=== PATIENT | female | born 1975 | race Two or more races ===

== ENCOUNTER 2020-07-04 18:58 | Emergency (ER) | payer SELFPAY ==
[~2020-07-04] VITALS: Ht 157.5 cm; Wt 62.0 kg
[2020-07-04] MEDS ORDERED: PREDNISONE 20MG TABLET PO ONE (20:00)
[2020-07-04] MEDS ORDERED: DIPHENHYDRAMINE 50MG CAPSULE PO ONE (20:00)
[2020-07-04] MEDS ORDERED: P50 MT (21:00)
[2020-07-04] MEDS ORDERED: B50 MT (21:01)
[2020-07-04 21:23] VITALS: BP 156/103
== END 2020-07-04 21:49 | disposition home or self-care (01) ==
LOC: ER 18:58
DX: T78.40XA Allergy, unspecified, initial encounter (principal); I10 Essential (primary) hypertension; Z88.0 Allergy status to penicillin; Z90.49 Acquired absence of other specified parts of digestive tract; Z90.710 Acquired absence of both cervix and uterus; X58.XXXA Exposure to other specified factors, initial encounter
CPT/HCPCS: 93005; 99283; J7512; Q0163